=== PATIENT | male | born 1955 | race Caucasian/White ===

== ENCOUNTER 2017-02-04 20:01 | Emergency (ER) | payer OTHER ==
[2017-02-04] MEDS ORDERED: Insulin Detemir 100 Units/ML 3 ML Pen SUBCUT ONE (21:14)
[2017-02-04 21:28] LABS: CHLORIDE,CL 95 mmol/L (98-107); SODIUM,NA 133 mmol/L (136-145)
--- NOTE | 2017-02-05 00:57 | EDM.PDOC ---
ED HPI GENERAL MEDICAL PROBLEM - General Chief Complaint: General Stated Complaint: hyperglycemia Time Seen by Provider: 02/04/17 20:32 Source of Information: Reports: Patient History Limitations: Reports: No Limitations - History of Present Illness INITIAL COMMENTS - FREE TEXT/NARRATIVE: Pt. states that he has been experiencing polyuria and polydipsia for the past several weeks. Pt. has a history of type 2 DM and currently takes metformin for this. Pt. states that he previously had been on a basal insulin but this was stopped when his A1C improved. Pt. denies fever, chills or other illness. No nausea, vomiting, or diarrhea. Denies any skin rashes. He isn't experiencing any sinus congestion. No neck stiffness. He states that he has been around several sick contacts the past week. Location: Reports: Generalized - Related Data Allergies Allergy/AdvReac Type Severity Reaction Status Date / Time No Known Allergies Allergy Verified 02/04/17 20:13 Home Meds: Home Meds Levothyroxine 175 mcg PO ACBRK 02/04/17 [History] atorvaSTATin [Lipitor] 10 mg PO BEDTIME 02/04/17 [History] metFORMIN HCl [Metformin HCl] 500 mg PO BID 02/04/17 [History] Past Medical History Cardiovascular History: Reports: High Cholesterol, Hypertension Endocrine/Metabolic History: Reports: Diabetes, Type II Social & Family History - Tobacco Use Smoking Status *Q: Former Smoker Used Tobacco, but Quit: Yes Month Tobacco Last Used: 2008 - Recreational Drug Use Recreational Drug Use: No ED ROS GENERAL - Review of Systems Review Of Systems: See Below Constitutional: Reports: No Symptoms HEENT: Reports: No Symptoms Respiratory: Reports: No Symptoms Cardiovascular: Reports: No Symptoms Endocrine: Reports: Fatigue, High Glucose, Polydypsia, Polyuria GI/Abdominal: Reports: No Symptoms : Reports: No Symptoms Musculoskeletal: Reports: No Symptoms Skin: Reports: No Symptoms Neurological: Reports: No Symptoms Psychiatric: Reports: No Symptoms Hematologic/Lymphatic: Reports: No Symptoms Immunologic: Reports: No Symptoms ED EXAM, GENERAL - Physical Exam Exam: See Below Exam Limited By: No Limitations General Appearance: Alert, WD/WN, No Apparent Distress Ears: Normal External Exam Nose: Normal Inspection, Normal Mucosa, No Blood Throat/Mouth: Normal Inspection, Normal Lips, Normal Teeth, Normal Gums, Normal Oropharynx, Normal Voice, No Airway Compromise Head: Atraumatic, Normocephalic Neck: Normal Inspection, Supple, Non-Tender, Full Range of Motion Respiratory/Chest: No Respiratory Distress, Lungs Clear, Normal Breath Sounds, No Accessory Muscle Use, Chest Non-Tender Cardiovascular: Normal Peripheral Pulses, Regular Rate, Rhythm, No Edema, No Gallop, No JVD, No Murmur, No Rub GI/Abdominal: Normal Bowel Sounds, Soft, Non-Tender, No Organomegaly, No Distention, No Abnormal Bruit, No Mass (Male) Exam: Deferred Rectal (Males) Exam: Deferred Back Exam: Normal Inspection, Full Range of Motion Extremities: Normal Inspection, Normal Range of Motion, Non-Tender, Normal Capillary Refill Neurological: Alert, Oriented, CN II-XII Intact, Normal Cognition, Normal Gait, Normal Reflexes, No Motor/Sensory Deficits, Sensory/Motor Deficit Psychiatric: Normal Affect, Normal Mood Skin Exam: Warm, Dry, Intact, Normal Color Course - Vital Signs Last Recorded V/S: Last Vital Signs Temp 35.6 C 02/04/17 20:10 Pulse 82 02/04/17 20:10 Resp 16 02/04/17 20:10 BP 139/101 H 02/04/17 20:10 Pulse Ox 98 02/04/17 20:10 - Orders/Labs/Meds Labs: Laboratory Tests 02/04/17 02/04/17 02/04/17 Range/Units 20:31 20:50 21:01 WBC 7.8 (4.0-10.0) x10^3/uL RBC 5.86 (4.5-6.0) x10^6/uL Hgb 17.7 (14.0-18.0) g/dL Hct 48.0 (40.0-52.0) % MCV 81.9 (78.0-93.0) fL MCH 30.2 (26.0-32.0) pg MCHC 36.9 H (32.0-36.0) g/dL RDW Coeff of [place] 13.2 (10.0-15.0) % Plt Count 190 (130-400) x10^3/uL Neut % (Auto) 56.2 (50.0-80.0) % Lymph % (Auto) 28.8 (25.0-50.0) % Crowley % (Auto) 8.4 (2.0-11.0) % Eos % (Auto) 6.1 H (0.0-4.0) % Baso % (Auto) 0.5 (0.2-1.2) % PT (9.8-11.8) SEC INR (2.0-3.5) Sodium (136-145) mmol/L Potassium (3.5-5.1) mmol/L Chloride (98-107) mmol/L Carbon Dioxide (21-32) mmol/L BUN (7-18) mg/dL Creatinine (0.70-1.30) mg/dL Est Cr Clr Drug Dosing mL/min Estimated GFR (MDRD) Glucose (74-106) mg/dL POC Glucose 417 H* (74-106) mg/dL Calcium (8.5-10.1) mg/dL Corrected Calcium (8.5-10.1) mg/dL Total Bilirubin (0.2-1.0) mg/dL AST (15-37) U/L ALT (16-63) U/L Alkaline Phosphatase (46-116) U/L Total Protein (6.4-8.2) g/dL Albumin (3.4-5.0) g/dL Globulin Albumin/Globulin Ratio Urine Color Yellow (YELLOW) Urine Appearance Clear (CLEAR) Urine pH 5.5 (5.0-8.0) Ur Specific [place] 1.010 Urine Protein Negative (NEGATIVE) mg/dL Urine Glucose (UA) 500 H (NEGATIVE) mg/dL Urine Ketones Negative (NEGATIVE) mg/dL Urine Occult Blood Negative (NEGATIVE) Urine Nitrite Negative (NEGATIVE) Urine Bilirubin Negative (NEGATIVE) Urine Urobilinogen 0.2 (0.2) EU/dL Ur Leukocyte Esterase Negative (NEGATIVE) Urine RBC Not seen (NOT SEEN) /HPF Urine WBC 0-5 (NOT SEEN) /HPF Ur Squamous Epith Cells Rare (NEGATIVE) /HPF Urine Bacteria Not seen (NEGATIVE) /HPF Urine Mucus Not seen (NEGATIVE) /LPF 02/04/17 02/04/17 Range/Units 21:01 21:01 WBC (4.0-10.0) x10^3/uL RBC (4.5-6.0) x10^6/uL Hgb (14.0-18.0) g/dL Hct (40.0-52.0) % MCV (78.0-93.0) fL MCH (26.0-32.0) pg MCHC (32.0-36.0) g/dL RDW Coeff of [place] (10.0-15.0) % Plt Count (130-400) x10^3/uL Neut % (Auto) (50.0-80.0) % Lymph % (Auto) (25.0-50.0) % Crow[place] % (Auto) (2.0-11.0) % Eos % (Auto) (0.0-4.0) % Baso % (Auto) (0.2-1.2) % PT 9.7 L (9.8-11.8) SEC INR 0.9 L (2.0-3.5) Sodium 133 L (136-145) mmol/L Potassium 4.6 (3.5-5.1) mmol/L Chloride 95 L (98-107) mmol/L Carbon Dioxide 30 (21-32) mmol/L BUN 16 (7-18) mg/dL Creatinine 1.1 (0.70-1.30) mg/dL Est Cr Clr Drug Dosing 72.82 mL/min Estimated GFR (MDRD) > 60 Glucose 435 H* (74-106) mg/dL POC Glucose (74-106) mg/dL Calcium 9.6 (8.5-10.1) mg/dL Corrected Calcium 9.12 (8.5-10.1) mg/dL Total Bilirubin 1.7 H (0.2-1.0) mg/dL AST 6 L (15-37) U/L ALT 46 (16-63) U/L Alkaline Phosphatase 130 H (46-116) U/L Total Protein 8.1 (6.4-8.2) g/dL Albumin 4.6 (3.4-5.0) g/dL Globulin 3.5 Albumin/Globulin Ratio 1.31 Urine Color (YELLOW) Urine Appearance (CLEAR) Urine pH (5.0-8.0) Ur Specific [place] Urine Protein (NEGATIVE) mg/dL Urine Glucose (UA) (NEGATIVE) mg/dL Urine Ketones (NEGATIVE) mg/dL Urine Occult Blood (NEGATIVE) Urine Nitrite (NEGATIVE) Urine Bilirubin (NEGATIVE) Urine Urobilinogen (0.2) EU/dL Ur Leukocyte Esterase (NEGATIVE) Urine RBC (NOT SEEN) /HPF Urine WBC (NOT SEEN) /HPF Ur Squamous Epith Cells (NEGATIVE) /HPF Urine Bacteria (NEGATIVE) /HPF Urine Mucus (NEGATIVE) /LPF Meds: Medications Discontinued Medications Generic Name Dose Route Start Last Admin Trade Name Gogo PRN Reason Stop Dose Admin Insulin Detemir 18 unit 02/04/17 21:14 02/04/17 21:44 Levemir SUBCUT 02/04/17 21:15 18 units ONETIME ONE Administration Departure - Departure Time of Disposition: 22:03 Disposition: Home, Self-Care 01 Clinical Impression: Hyperglycemia, Type 2 diabetes mellitus, Hyperglycemia without ketosis - Discharge Information Instructions: Type 2 Diabetes Mellitus, Adult, Insulin Detemir injection Referrals: Johnny Gtz MD [Primary Care Provider] - Forms: ED Department Discharge Additional Instructions: Begin Levemir 18 units once daily. Continue with Metformin at current dosage. Follow-up with Dr. Gtz in the next week.
== END 2017-02-04 22:03 | disposition home or self-care (01) ==
LOC: VM.ED 20:01
DX: E11.65 Type 2 diabetes mellitus with hyperglycemia (principal); I10 Essential (primary) hypertension; E78.00 Pure hypercholesterolemia, unspecified; Z87.891 Personal history of nicotine dependence; Z79.899 Other long term (current) drug therapy; Z79.84 Long term (current) use of oral hypoglycemic drugs
CPT/HCPCS: 36415; 80053; 81001; 82962; 85025; 85610; 96372; 99283; J1815

== ENCOUNTER 2019-04-13 19:11 | Emergency (ER) | payer OTHER ==
[2019-04-13] MEDS ORDERED: Ketorolac 30 MG/ML SDV IM ONE (19:18)
--- NOTE | 2019-04-13 19:35 | EDM.PDOC ---
ED HPI GENERAL MEDICAL PROBLEM - General Stated Complaint: MUSCLE SPASMS Time Seen by Provider: 04/13/19 19:11 Source of Information: Reports: Patient History Limitations: Reports: No Limitations - History of Present Illness INITIAL COMMENTS - FREE TEXT/NARRATIVE: Pt. presents to ER with complaints of lumbar back pain. He states that he feel backward off the second from the bottom step on 04/10/19. He states that he did not strike his head and denies any neck pain. He complains of low back pain with radiation into R buttock area. Denies radiation past his upper gluteal area. Denies any numbness/tingling in the lower extremities. Denies incontinence or saddle anesthesia. Pt. states that he has a longstanding history of low back pain, and feels that he exacerbated a chronic injury. He states that he has never had an MRI, and states that it has always improved with rest eventually. Onset Date: 04/10/19 Location: Reports: Back Quality: Reports: Sharp, Stabbing, Throbbing Right low back Pain Score (Numeric/FACES): 8 - Related Data Allergies Allergy/AdvReac Type Severity Reaction Status Date / Time No Known Allergies Allergy Verified 04/13/19 19:47 Home Meds: Home Meds atorvaSTATin [Lipitor] 10 mg PO BEDTIME 02/04/17 [History] metFORMIN HCl [Metformin HCl] 1,000 mg PO BID 02/04/17 [History] Aspirin 81 mg PO DAILY 04/13/19 [History] Cholecalciferol (Vitamin D3) [Vitamin D3] 2,000 units PO DAILY 04/13/19 [History ] Insulin Detemir [Levemir Flextouch] 34 units SQ BEDTIME 04/13/19 [History] Levothyroxine 150 mcg PO DAILY 04/13/19 [History] Losartan/Hydrochlorothiazide [Hyzaar 100-12.5 Tablet] 1 tab PO DAILY 04/13/19 [ History] Melatonin 10 mg PO BEDTIME 04/13/19 [History] [place]-3S/DHA/Epa/Fish Oil [[place]-3 Fish Oil 1,000 mg Sfgl] 1,000 mg PO BID 04/12 [History] amLODIPine Besylate [Norvasc] 2.5 mg PO DAILY 04/13/19 [History] Past Medical History Cardiovascular History: Reports: High Cholesterol, Hypertension Endocrine/Metabolic History: Reports: Diabetes, Type II ED ROS GENERAL - Review of Systems Review Of Systems: See Below Constitutional: Reports: No Symptoms HEENT: Reports: No Symptoms Respiratory: Reports: No Symptoms Cardiovascular: Reports: No Symptoms Endocrine: Reports: No Symptoms GI/Abdominal: Reports: No Symptoms : Reports: No Symptoms Musculoskeletal: Reports: Back Pain, Muscle Pain, Muscle Stiffness Skin: Reports: No Symptoms Neurological: Reports: No Symptoms. Denies: Paresthesia, Tingling, Weakness, Gait Disturbance Psychiatric: Reports: No Symptoms Hematologic/Lymphatic: Reports: No Symptoms Immunologic: Reports: No Symptoms ED EXAM, GENERAL - Physical Exam Exam: See Below Exam Limited By: No Limitations General Appearance: Alert, WD/WN, No Apparent Distress Ear Exam: Bilateral Ear: Auricle Normal, Canal Normal, TM normal Head: Atraumatic, Normocephalic Neck: Normal Inspection, Supple, Non-Tender, Full Range of Motion Back Exam: Normal Inspection, Decreased Range of Motion Extremities: Normal Inspection, Normal Range of Motion, Non-Tender, No Pedal Edema, Normal Capillary Refill Neurological: Alert, Oriented, CN II-XII Intact, Normal Cognition, Normal Gait, Normal Reflexes, No Motor/Sensory Deficits Psychiatric: Normal Affect, Normal Mood Skin Exam: Warm, Dry, Intact, Normal Color, No Rash Course - Vital Signs Last Recorded V/S: Last Vital Signs Temp 36.6 C 04/13/19 19:11 Pulse 68 04/13/19 20:15 Resp 16 04/13/19 20:15 BP 141/85 H 04/13/19 20:15 Pulse Ox 98 04/13/19 19:11 - Orders/Labs/Meds Orders: Active Orders 24 hr Category Date Time Status Pelvis Min 3V [CR] Stat Exams 04/13/19 19:16 Stop Req Meds: Medications Discontinued Medications Generic Name Dose Route Start Last Admin Trade Name Freq PRN Reason Stop Dose Admin Hydrocodone Bitart/Acetaminophen 1 packet 04/13/19 20:10 04/13/19 20:15 Take Home: Acetam/Hydrocodon 325-5 Mg, 5 Pack PO 04/13/19 20:11 1 packet ONETIME ONE Administration Cyclobenzaprine HCl 1 packet 04/13/19 20:10 04/13/19 20:15 Take Home: Cyclobenzaprine 10 Mg, 4 Tab Pack PO 04/13/19 20:11 1 packet ONETIME ONE Administration Ketorolac Tromethamine 30 mg 04/13/19 19:18 04/13/19 19:40 Toradol IM 04/13/19 19:19 30 mg ONETIME ONE Administration Orphenadrine Citrate 60 mg 04/13/19 19:18 04/13/19 19:40 Norflex IM 04/13/19 19:19 60 mg ONETIME ONE Administration - Radiology Interpretation Free Text/Narrative:: Radiographs of L spine and pelvis obtained and were found negative Departure - Departure Time of Disposition: 20:18 Disposition: Home, Self-Care 01 Clinical Impression: Acute exacerbation of chronic low back pain - Discharge Information Instructions: Acetaminophen; Hydrocodone tablets or capsules, Cyclobenzaprine tablets, Acute Back Pain, Adult Referrals: Johnny Gtz MD [Primary Care Provider] - Forms: ED Department Discharge Additional Instructions: Flexeril 10mg 1 three times daily as needed for spasm Keller 5/325mg 1 every 4-6 hours as needed for pain Ibuprofen 200mg 2-3 tabs every 6 hours as needed for pain Recheck in clinic this week Physical therapy will be in contact with you Sepsis Event Note - Focused Exam Vital Signs: Vital Signs Temp Pulse Resp BP Pulse Ox 04/13/19 20:15 68 16 141/85 H 04/13/19 19:11 36.6 C 68 16 179/82 H 98 Date Exam was Performed: 04/13/19 Time Exam was Performed: 20:16 - Problem List Review Problem List Initiated/Reviewed/Updated: Yes - My Orders Last 24 Hours: My Active Orders 04/13/19 19:16 Pelvis Min 3V [CR] Stat - Assessment/Plan Last 24 Hours: My Active Orders 04/13/19 19:16 Pelvis Min 3V [CR] Stat Plan: Flexeril 10mg 1 three times daily as needed for spasm Keller 5/325mg 1 every 4-6 hours as needed for pain Ibuprofen 200mg 2-3 tabs every 6 hours as needed for pain Recheck in clinic this week Physical therapy will be in contact with you
--- NOTE | 2019-04-13 20:06 | CR ---
[id number] RAD/RAD Pelvis 1-2V EXAM: SINGLE VIEW PELVIS. INDICATION: FELL BACKWARD ON STAIRS . COMPARISON: None. DISCUSSION: No fracture, dislocation or other osseous abnormality. IMPRESSION: 1. No acute osseous abnormalities. Dwayne Saavedra DO 04/13/192004 Thank you for allowing us to participate in the care of your patient.
--- NOTE | 2019-04-13 20:06 | CR ---
[id number] RAD/RAD Lumbar Spine 2-3V EXAM: AP AND LATERAL LUMBAR SPINE. INDICATION: Fall. COMPARISON: No previous similar exam is available for comparison. FINDINGS: No fracture or subluxation is seen. There is preservation of height of disc spaces and vertebrae. Multilevel endplate osteophytosis and facet arthropathy. These findings are most pronounced at L5-S1. The pedicles are intact. IMPRESSION: No acute fracture or subluxation. Dwayne Saavedra DO 04/13/192005 Thank you for allowing us to participate in the care of your patient.
[2019-04-13] MEDS ORDERED: Take Home: Cyclobenzaprine 10 MG Tab, 4 Tab Pack PO ONE (20:10)
[2019-04-13] MEDS ORDERED: Take Home: Acetaminophen/HYDROcodone 325-5 MG, 5 Tab Pack PO ONE (20:10)
== END 2019-04-13 20:28 | disposition home or self-care (01) ==
LOC: VM.ED 19:11
DX: M54.5 Low back pain (principal); G89.29 Other chronic pain; E78.00 Pure hypercholesterolemia, unspecified; I10 Essential (primary) hypertension; E11.9 Type 2 diabetes mellitus without complications; Z79.899 Other long term (current) drug therapy; Z79.82 Long term (current) use of aspirin; Z79.4 Long term (current) use of insulin
CPT/HCPCS: 72100; 72170; 96372; 99283-25; A9270-GY; J1885; J2360

== ENCOUNTER 2021-12-10 12:58 | Emergency (ER) | payer MEDICARE, OTHER ==
[2021-12-10] MEDS ORDERED: Aspirin 81 MG Tab.Chew PO ONE (13:45)
[2021-12-10 13:52] LABS: ANION GAP 13.9 mmol/L (5-15)
[2021-12-10] MEDS ORDERED: Heparin Sodium 5,000 Units/ML Vial IVPUSH ONE (15:19)
[2021-12-10] MEDS ORDERED: Heparin Sodium/0.45% NaCl 25,000 UNITS/500 ML BAG IV SCH (15:30)
== END 2021-12-10 16:10 | disposition short-term general hospital (02) ==
LOC: VM.ED 12:58
DX: I20.8 Other forms of angina pectoris (principal); R79.89 Other specified abnormal findings of blood chemistry; E78.00 Pure hypercholesterolemia, unspecified; I10 Essential (primary) hypertension; E11.9 Type 2 diabetes mellitus without complications; Z79.899 Other long term (current) drug therapy; Z79.82 Long term (current) use of aspirin; Z79.4 Long term (current) use of insulin
CPT/HCPCS: 71046; 80053; 81003; 82550; 83615; 84484; 85025; 85730; 93005; 93010; 96365; 99284; 99285-25; A9270-GY; J1644

== ENCOUNTER 2022-04-23 17:41 | Emergency (ER) | payer MEDICARE, OTHER ==
[2022-04-23] MEDS ORDERED: Ketorolac 30 MG/ML SDV IM ONE (17:56)
[2022-04-23] MEDS ORDERED: Take Home: Acetaminophen/HYDROcodone 325-10 MG, 5 Tab Pack PO ONE (18:45)
== END 2022-04-23 18:58 | disposition home or self-care (01) ==
LOC: VM.ED 17:41
DX: M54.50 Low back pain, unspecified (principal); I10 Essential (primary) hypertension; E78.00 Pure hypercholesterolemia, unspecified; E11.9 Type 2 diabetes mellitus without complications; Z79.4 Long term (current) use of insulin; Z79.899 Other long term (current) drug therapy; Z79.82 Long term (current) use of aspirin
CPT/HCPCS: 72100; 96372; 99283; 99283-25; A9270-GY; J1885

== ENCOUNTER 2024-06-17 13:57 | Emergency (ER) | payer MEDICARE, OTHER ==
[2024-06-17 14:27] LABS: BASOPHILS PERCENT AUTO 0.2 % (0.2-1.2); HEMATOCRIT 40.2 % (40.0-52.0); HEMOGLOBIN 14.9 g/dL (14.0-18.0); IMMATURE GRAN ABSOLUTE AUTO 0.02 x10^3/uL (0.00-0.07); LYMPHOCYTES ABSOLUTE AUTO 0.6 x10^3/uL (1.0-4.8); LYMPHOCYTES PERCENT AUTO 5.8 % (25.0-50.0); MEAN CORPUSCULAR HEMOGLOBIN 30.2 pg (26.0-32.0); MEAN CORPUSCULAR HGB CONC 37.1 g/dL (32.0-36.0); MEAN CORPUSCULAR VOLUME 81.5 fL (78.0-93.0); MONOCYTES ABSOLUTE AUTO 1.3 x10^3/uL (0.0-0.8); MONOCYTES PERCENT AUTO 12.8 % (2.0-11.0); NEUTROPHILS ABSOLUTE AUTO 8.3 x10^3/uL (1.8-7.7); PLATELET COUNT,PLT 128 x10^3/uL (130-400); RED BLOOD CELL COUNT 4.93 x10^6/uL (4.5-6.0); WHITE BLOOD CELL COUNT,WBC 10.3 x10^3/uL (4.0-10.0)
[2024-06-17] MEDS: Acetaminophen 325 MG Tab PO ONE (14:35)
[2024-06-17 14:43] LABS: APPEARANCE,URINE SLIGHTLY CLOUDY (CLEAR); BILIRUBIN,URINE NEGATIVE (NEGATIVE); COLOR,URINE YELLOW (YELLOW); GLUCOSE,URINE 500 mg/dL (NEGATIVE); KETONES,URINE 15 mg/dL (NEGATIVE); LEUKOCYTE ESTERASE,URINE TRACE (NEGATIVE); NITRITE,URINE POSITIVE (NEGATIVE); OCCULT BLOOD,URINE MODERATE (NEGATIVE); PH,URINE 5.5 (5.0-8.0); PROTEIN,URINE 100 mg/dL (NEGATIVE)
[2024-06-17 14:50] LABS: BACTERIA,URINE MODERATE /HPF (NOT SEEN); MUCUS,URINE FEW /LPF (NOT SEEN); RBC,URINE 20-30 /HPF (NOT SEEN); SQUAMOUS EPITHELIAL CELLS,UR NOT SEEN /HPF (NOT SEEN); WBC,URINE 30-40 /HPF (NOT SEEN)
[2024-06-17 14:52] LABS: A/G RATIO 1.15; ALBUMIN 3.8 g/dL (3.4-5.0); BILIRUBIN TOTAL 3.8 mg/dL (0.2-1.0); CALCIUM 8.6 mg/dL (8.5-10.1); EST CRCL DRUG DOSING (CG) 71.99 mL/min; POTASSIUM,K 3.6 mmol/L (3.5-5.1); PROTEIN TOTAL,TP 7.1 g/dL (6.4-8.2)
[2024-06-17 14:56] LABS: ANION GAP 13.6 mmol/L (5-15)
[2024-06-17] MEDS: cefTRIAXone 2 GM Vial IVPUSH ONE (15:07)
== END 2024-06-17 15:13 | disposition home or self-care (01) ==
LOC: VM.ED 13:57
DX: N39.0 Urinary tract infection, site not specified (principal); E78.00 Pure hypercholesterolemia, unspecified; I10 Essential (primary) hypertension; E11.9 Type 2 diabetes mellitus without complications; E03.9 Hypothyroidism, unspecified; Z79.899 Other long term (current) drug therapy; Z79.82 Long term (current) use of aspirin; Z79.890 Hormone replacement therapy
CPT/HCPCS: 80053; 81001; 83605; 84484; 85025; 87086; 87088; 87186; 87428; 96374; 99284; A9270; J0696

== ENCOUNTER 2025-01-09 09:52 | Emergency (ER) | payer MEDICARE, OTHER ==
[2025-01-09] MEDS: Ketorolac 30 MG/ML SDV IM ONE (10:59)
[2025-01-09] MEDS: methylPREDNISolone Sodium Succinate 125 MG/2 ML SDV IM ONE (11:01)
[2025-01-09] MEDS ORDERED: Take Home: traMADol 50 MG, 4 Tab Pack PO ONE (11:06)
[2025-01-09] MEDS: Take Home: Ketorolac 10 MG Tab, 4 Tab Pack PO ONE (11:26)
== END 2025-01-09 11:28 | disposition home or self-care (01) ==
LOC: VM.ED 09:52
DX: M54.42 Lumbago with sciatica, left side (principal); I10 Essential (primary) hypertension; E78.00 Pure hypercholesterolemia, unspecified; E11.9 Type 2 diabetes mellitus without complications; E66.9 Obesity, unspecified; E03.9 Hypothyroidism, unspecified; Z79.899 Other long term (current) drug therapy; Z79.890 Hormone replacement therapy; Z79.82 Long term (current) use of aspirin; Z79.4 Long term (current) use of insulin
CPT/HCPCS: 96372; 99283; A9270; J1885; J2919